=== PATIENT | female | born 1970 | race Caucasian/White ===

== ENCOUNTER 2017-02-08 09:12 | Emergency (ER) | payer MEDICAID ==
--- NOTE | 2017-02-08 09:25 | ED Physician Chart ---
ED Chief Complaint/HPI - Patient Information Date Seen:: 02/08/17 Time Seen:: 09:18 Chief Complaint:: Facial rash for at one day. History of Present Illness:: Brought in by [employer] fisheries officer for the above reason and for okay to book. Pt states that she came in contact with plants outside of a home prior to onset of her facial rash. No significant pruritis. No pain. Pt has a tendency to pick on the affected areas on her face. No fever. Taking po well without N/V/ D. No dyspnea. Allergies:: Allergies Allergy/AdvReac Type Severity Reaction Status Date / Time No Known Allergies Allergy Verified 02/08/17 09:19 Vitals:: see Nurse Note. Historian:: Patient Family MD/PCP:: Unknown. LMP:: about 4 years ago. Review:: Nurse's Note Reviewed ED Review of Systems - Review of Systems General/Constitutional: No fever, No weakness, No edema, No loss of appetite Skin: Rash (Facial rash, see HPI.), No bruising Head: No headache, No light-headedness Eyes: No loss of vision, No pain, No diplopia ENT: No earache, No nasal drainage, No sore throat, No tinnitus Neck: No neck pain, No swelling, No stiffness Cardio Vascular: No chest pain, No palpitations, No edema Pulmonary: No SOB, No cough, No wheezing GI: No nausea, No vomiting, No diarrhea, No pain, No melena, No hematochezia, No constipation, No hematemesis G/U: No dysuria, No frequency, No hematuria Meter Record Clerk: No vaginal discharge, No abnormal vaginal bleed Musculoskeletal: No bone or joint pain, No back pain, No muscle pain Endocrine: No polyuria, No polydipsia Psychiatric: No prior psych history Hematopoietic: No bruising, No lymphadenopathy Allergic/Immuno: No urticaria, No angioedema Neurological: No syncope, No focal symptoms, No weakness, No paresthesia, No headache, No confusion ED Past Medical History - Past Medical History Past Medical History: No significant medical hx Family History: None Social History: Non Smoker, No Alcohol, No Drug Use, Single, Employed 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 Surgical History: None Psychiatricy History: None Medication: Reviewed ED Physical Exam - Physical Examination General/Constitutional: Awake, Well-developed, well-nourished, Alert, No distress, GCS 15, Non-toxic appearing, Ambulatory Other Gen/Cons comments:: Breathes comfortably, speaks clearly, and ambulates without difficulty. Head: Atraumatic Eyes: Lids, conjuctiva normal, PERRL, EOMI Skin: No ecchymosis, Well hydrated, No lymphadenopathy Other Skin comments:: There are sparingly distributed small punctate lesions with dry scab on face with excoriation rooney on nose. No swelling, exudate, or peripheral erythema. ENMT: Oropharynx nl Neck: Nontender, Full ROM w/o pain, No nuchal rigidity, No mass, No stridor Respiratory: Nl effort/Exclusion, Clear to Auscultation, No Wheeze/Rhonchi/Rales Cardio Vascular: RRR, No murmur, gallop, rubs GI: No tenderness/rebounding/guarding, No organomegaly, Normal BS's, Nondistended Other GI comments:: Abdomen is soft. Extremities: No tenderness or effusion, Full ROM, No edema Neuro/Psych: Alert/oriented (oriented x 3.), Normal gait, No focal deficits ED Septic Shock - . Is Septic Shock (SBP<90, OR Lactate>4 mmol\L) present?: No ED Reassessment (Disposition) - Reassessment Reassessment:: 0948 Pt remains stable. Pt requests to leave with fisheries officer now. Aftercare instructions have been given. - Diagnosis Diagnosis:: Local irritation without sign of infection. - Aftercare/Follow up Instructions Aftercare/Follow-Up Instructions:: Refer to Discharge Instructions Notes:: Pt has been instructed to avoid picking on lesions. May take Benadryl 50 mg po q6h prn itchiness. Drowsiness precautions given. Okay to book form has been completed. F/U with medical physicist in residential in one day for recheck. Return to ER immediately if condition worsens or if any further questions/problems. Medication Prescribed:: Bactrim DS one tab po q12h for 10 days. D-20 R-0 - Patient Disposition Discharge/Transfer:: [facility]/Custodial Time:: 09:50 Condition at Disposition:: Stable
[2017-02-08] MEDS ORDERED: Triple Antibiotic 0.94 gm Pkt TP STA (09:38)
[2017-02-08] MEDS ORDERED: Triple Antibiotic 0.94 gm Pkt TP ONE (09:39)
== END 2017-02-08 10:21 | disposition still patient (30) ==
LOC: ER 09:12
DX: R21 Rash and other nonspecific skin eruption (principal)
CPT/HCPCS: Z7502